=== PATIENT | female | born 1995 | race Two or more races ===

== ENCOUNTER 2024-12-31 13:28 | Emergency (ER) | payer MEDICAID ==
[~2024-12-31] VITALS: Ht 160 cm; Wt 55.8 kg
[~2024-12-31 13:28] MED LIST: PRENCAP OR
--- NOTE | 2024-12-31 14:04 | ED.PDOC ---
CEMENT PATCHER HPI Comments A 29 YEAR OLD FEMALE PRESENTS TO THE ED WITH COMPLAINT OF ABNORMAL VAGINAL BLEEDING X TODAY WITH SUPRAPUBIC CRAMPING. PT STATES SHE IS EXPERIENCING PINK SPOTTING. LMP IN 08/2024 BUT PT BELIEVES SHE MAY ONLY BE 3-4 WEEKS . URINE HOME TEST POSITIVE ONE WEEK AGO. 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 PATIENT DENIES FEVER, CHILLS, SHORTNESS OF BREATH, CHEST PAIN, NAUSEA, VOMITING, HEADACHE, URINARY SYMPTOMS, OR OTHER COMPLAINTS. NO OTHER SYMPTOMS OR MODIFYING FACTORS AT THIS TIME. PATIENT IS ALERT, ORIENTED X 4, AND HAS STEADY GAIT. Chief Complaint: Pelvic Pain Time Seen by MD: 13:50 Reviewed Notes: Nurses Notes, Medications, Allergies Allergies: Coded Allergies: NO KNOWN ALLERGIES (Unverified , 06/27/12) Home Meds Reported Medications Mv & Min W/Fe Fumarat ( 1) Cap, 1 OR, CAP 12/25/14 Information Source: Patient Mode of Arrival: Ambulatory Timing: Hours Severity: Mild Vaginal Discharge: None Vaginal Lesions: None Bleeding Quality: Bright Red (PINK) Vaginal Mass: None Onset Of Mass/Bleeding: Spontaneous Sexual Activity: Last Consensual [place]: Unknown Control: None History of: Current Blood Type: Unknown Associated Signs and Symptoms: Cramping, Other (VAGINAL SPOTTING ) Past Medical History PAST MEDICAL HISTORY: Denies Surgical History: Denies all surgeries UNIT COORDINATOR History: No Pertinent UNIT COORDINATOR History Family History Family History: Unknown Social History Smoker: Non-Smoker Alcohol: Denies ETOH Use Drugs: Denies Drug Use Lives In: Home Constitutional: denies: chills, diaphoresis, fatigue, fever, malaise, sweats, weakness, others EENTM: denies: blurred vision, double vision, ear bleeding, ear discharge, ear drainage, ear pain, ear ringing, eye pain, eye redness, hearing loss, mouth pain, mouth swelling, nasal discharge, nose bleeding, nose congestion, nose pain, photophobia, tearing, throat pain, throat swelling, voice changes, others Respiratory: denies: cough, hemoptysis, orthopnea, SOB at rest, shortness of breath, SOB with excertion, stridor, wheezing, others Cardiovascular: denies: chest pain, dizzy spells, diaphoresis, Dyspnea on exertion, edema, irregular heart beat, left arm pain, lightheadedness, palpitations, PND, syncope, others Gastrointestinal: denies: abdomen distended, abdominal pain, blood streaked bowels, constipated, diarrhea, dysphagia, difficulty swallowing, hematemesis, melena, nausea, poor appetite, poor fluid intake, rectal bleeding, rectal pain, vomiting, others Genitourinary: reports: abnormal vagina bleeding, pain, ; denies: burning, dyspareunia, dysuria, flank pain, frequency, hematuria, incontinence, vagina discharge, urgency, others Neurological: denies: dizziness, fainting, headache, left sided numbness, left sided weakness, numbness, paresthesia, pre-existing deficit, right sided numbness, right sided weakness, seizure, speech problems, tingling, tremors, weakness, others Musculoskeletal: denies: back pain, gout, joint pain, joint swelling, muscle pain, muscle stiffness, neck pain, others Integumetry: denies: bruises, change in color, change in hair/nails, dryness, laceration, lesions, lumps, rash, wounds, others Allergic/Immunocompromised: denies: Difficulty Healing, Frequent Infections, Hives, Itching, others Hematologic/Lymphatic: denies: anemia, blood clots, easy bleeding, easy bruising, swollen glands, others Endocrine: denies: excessive hunger, excessive sweating, excessive thirst, excessive urination, flushing, intolerance to cold, intolerance to heat, unexplained weight gain, unexplained weight loss, others Psychiatric: denies: anxiety, bipolar disorder, depression, hopeless, panic disorder, schizophrenia, sleepless, suicidal, others All Other Systems: Reviewed and Negative Physical Exam General Appearance: No Apparent Distress, Normal HEENT: Normal ENT Inspection, PERRL/EOMI, Pharynx Normal, TMs Normal Neck: Full Range of Motion, Non-Tender, Normal, Normal Inspection Respiratory: Chest Non-Tender, Lungs Clear, No Accessory Muscle Use, No Respiratory Distress, Normal Breath Sounds Cardiovascular: No Edema, No JVD, No Murmur, No Gallop, Normal Peripheral Pulses, Regular Rate/Rhythm Breast Exam: Deferred Gastrointestinal: No Organomegaly, Non Tender, No Pulsatile Mass, Normal Bowel Sounds, Soft Genitalia: Deferred Pelvic: Normal External Exam, Tender Uterus, Other (VAGINAL SPOTTING, NO VAGINAL BLEEDING AND BLOOD CLOTS. ) Rectal: Deferred Extremities: No calf tenderness, Normal capillary refill, Normal inspection, Normal range of motion, Non-tender, No pedal edema Musculoskeletal : Apperance: Normal Neurologic: Alert, snipper II-XII nml as Tested, No Motor Deficits, Normal Affect, Normal Mood, No Sensory Deficits Cerebellar Function: Normal Reflexes: Normal Skin: Dry, Normal Color, Warm Peripheral Pulses: 2+ carotid (R), 2+ carotid (L) Lymphatic: No Adenopathy Was a procedure done? Was a procedure done?: No Differential Diagnosis (UNIT COORDINATOR) Vaginal Bleeding: - Threatened, Ectopic , UTI Mass / Lesion: N/A Vaginal Discharge: UTI, N/A X-Ray, Labs, Meds, VS Vital Signs Date Time Temp Pulse Resp B/P (MAP) Pulse Ox O2 Delivery O2 Flow Rate FiO2 12/31/24 13:52 110 18 97 Room Air 12/31/24 13:52 98.1 110 18 128/66 (86) 97 98.1 12/31/24 13:33 98.1 110 18 128/66 (86) 97 Lab Test 12/31/24 14:10 12/31/24 13:35 Range/Units White Blood Count 7.1 4.4-10.8 10^3/uL Red Blood Count 4.00 4.0-5.20 10^6/uL Hemoglobin 13.3 12.2-16.2 g/dL Hematocrit 38.8 36.0-46.0 % Mean Corpuscular Volume 97.2 80.0-100.0 fL Mean Corpuscular Hemoglobin 33.3 H 28.0-32.0 pg Mean Corpuscular Hemoglobin Concent 34.2 32.0-36.0 g/dL Red Cell Distribution Width 12.4 11.8-14.3 % Platelet Count 232 140-450 10^3/uL Mean Platelet Volume 8.7 6.9-10.8 fL Neutrophils (%) (Auto) 62.9 37.0-80.0 % Lymphocytes (%) (Auto) 27.7 10.0-50.0 % Monocytes (%) (Auto) 8.4 0.0-12.0 % Eosinophils (%) (Auto) 0.5 0.0-7.0 % Basophils (%) (Auto) 0.5 0.0-2.0 % Neutrophils # (Auto) 4.5 1.6-8.6 10 ^3/uL Lymphocytes # (Auto) 2.0 0.4-5.4 10 ^3/uL Monocytes # (Auto) 0.6 0-1.3 10 ^3/uL Eosinophils # (Auto) 0 0-0.8 10 ^3/uL Basophils # (Auto) 0 0-0.2 10 ^3/uL Nucleated Red Blood Cells 0.1 % Beta HCG, Quantitative 2160.7 H 1.5-4.2 mIU/mL Urine Color Yellow Yellow Urine Clarity Clear Clear Urine pH 6.0 5.0-9.0 Urine Specific [place] 1.020 1.001-1.035 Urine Protein Negative Negative Urine Ketones 1+ H Negative Urine Blood Negative Negative /uL Urine Nitrite Negative Negative Urine Bilirubin Negative Negative Urine Urobilinogen Normal Negative mg/dL Urine Leukocyte Esterase Negative Negative /uL Urine RBC 1 0 - 4 /hpf Urine Microscopic WBC 1 0-5 /HPF Urine Squamous Epithelial Cells Few <5 /hpf Urine Bacteria Few H None Seen /hpf Urine Hyaline Casts Few 0 - 2 /lpf Urine Mucus Few None Seen Urine Glucose Normal Normal mg/dL Urine Test Positive Negative [facility] [id number] [place] [address] Ph: [phone] DIAGNOSTIC IMAGING Diagnostic Imaging Report : [id number] Signed PATIENT: FIGUEROA CROFT ACCT: [id number] UNIT: [id number] : 1995 LOC: ER ROOM / BED: / AGE / SEX: 29 / F ADM STATUS: REG ER SERVICE [id number] ORDERING PHYSICIAN: EDWIN SALCIDO PROCEDURE(s): OB4US - OB ULTRASOUND COMP LESS 14WKS REASON: VAGINAL SPOTTING AND PELVIC PAIN ORDER NUMBER(s): [id number], ACCESSION NUMBER(s): [id number] OB ULTRASOUND <14 WEEKS: HISTORY: VAGINAL SPOTTING AND PELVIC PAIN TECHNIQUE: Multiple real-time grayscale sonographic images of the pelvis with duplex Doppler color flow, spectral and M-mode analysis. TRANSDUCERS: Transabdominal and transvaginal COMPARISON: None FINDINGS: The uterus measures 9.0 x 6.0 x 4.2 cm. Endometrial thickness measures 6 mm. The cervix is unremarkable. Right ovary measures 2.9 x 1.9 x 1.8 cm with normal Doppler color flow. Left ovary measures 3.2 x 2.0 x 2.3 cm with normal Doppler color flow. No fluid in the pelvic cul-de-sac. IMPRESSION: 1. No intrauterine is seen at this time. Recommend follow-up ultrasound and serial beta HCG as clinically indicated. 2. Ovaries are unremarkable. No adnexal masses. ATED BY: MIR SOLOMON DO DICTATED DATE/TIME: 12/31/24 1506 SIGNED BY: MIR SOLOMON DO SIGNED DATE/TIME: 12/31/24 1506 CC: X-Ray, Labs, Meds, VS Comment COURSE: EXTERNAL MEDICAL RECORDS REVIEWED: [NONE] INDEPENDENT HISTORIANS: [NONE] SOCIAL DETERMINANTS OF HEALTH: [NONE] LABS ORDERED: CBC, BETA HCG QUANT, UA, URINE TEST REVIEWED AND INTERPRETED RESULTS: CBC, BETA HCG QUANT, UA, URINE TEST IMAGING ORDERED: TREATMENTS ORDERED: NONE PROCEDURES PERFORMED: NONE CRITICAL CARE TIME: NONE I HAVE DISCUSSED THE PATIENT WITH THE ATTENDING PHYSICIAN DR. GEE AND HE AGREES WITH THE PATIENT'S PLAN OF CARE AND DISPOSITION. BASED ON HISTORY OF PRESENT ILLNESS, AND PHYSICAL EXAM, PATIENT WILL BE DISCHARGED HOME. DISCUSSED PLAN FOR DISCHARGE HOME WITH RX. MEDICATION WARNINGS GIVEN. SHARED DECISION MAKING: DISCUSSED WITH PATIENT THAT THEIR WORKUP WAS NORMAL. PATIENT INSTRUCTED TO FOLLOW UP WITH PRIMARY CARE PROVIDER IN 1-2 DAYS FOR RE- EVALUATION OF SYMPTOMS. PATIENT VERBALIZES UNDERSTANDING TO RETURN TO ED FOR NEW OR WORSENING SYMPTOMS OR IF FOLLOW UP WITH PCP CANNOT BE OBTAINED. PATIENT FEELS COMFORTABLE GOING HOME AT THIS TIME. ALL QUESTIONS ADDRESSED AT TIME OF DISCHARGE Time of 1ST Reevaluation: 16:06 Reevaluation 1ST: Improved Patient Education/Counseling: Diagnosis, Treatment, Need For Follow Up Family Education/Counseling: Diagnosis, Treatment, Need For Follow Up, No Family Present Medical Screening: No EMC Exist At This Time Departure 1 Departure Time of Disposition: 16:10 Impression: Primary Impression: Vaginal spotting Additional Impression: Threatened in early Disposition: 01 HOME / SELF CARE / HOMELESS Condition: Stable Additional Instructions: FOLLOW-UP WITH CEMENT PATCHER AND ER IN 2 DAYS TO RECHECK BETA-HCG TEST. TAKE MEDICATIONS PRESCRIBED. RETURN TO ED FOR ANY NEW OR WORSENING SYMPTOMS. Discharged With: Self Critical Care Note Critical Care Time?: No Stability Stability form required: No Heart Score Heart Score: Heart Score Response (Comments) Value History N/A 0 EKG N/A 0 Age N/A 0 Risk Factors N/A 0 Troponin N/A 0 Total 0 I personally scribed for EDWIN SALCIDO ([email or web address]) on 12/31/24 at 14:04. Electronically submitted by Ruth Alonso ([employer]). I personally scribed for EDWIN SALCIDO ([email or web address]) on 12/31/24 at 15:12. Electronically submitted by Ruth Alonso ([email or web address]). I personally scribed for EDWIN SALCIDO ([email or web address]) on 12/31/24 at 16:01. Electronically submitted by Ruth Alonso ([email or web address]). EDWIN SALCIDO Dec 31, 2024 14:04
[2024-12-31 14:06] LABS: Urine Bacteria FEW /hpf (None Seen); Urine Blood Negative /uL (Negative); Urine Clarity Clear (Clear); Urine Color Yellow (Yellow); Urine Hyaline Cast FEW /lpf (0 - 2); Urine Mucus FEW (None Seen); Urine Protein, UAD Negative (Negative); Urine Squamous Epithelial Cell FEW /hpf (<5); Urine Urobilinogen Normal (Negative); Urine WBC 1 /HPF (0-5)
[2024-12-31 14:51] LABS: Basophils # (auto) 0 10 ^3/uL (0-0.2); Basophils % (auto) 0.5 % (0.0-2.0); Eosinophils # (auto) 0 10 ^3/uL (0-0.8); Eosinophils % (auto) 0.5 % (0.0-7.0); Hematocrit 38.8 % (36.0-46.0); Hemoglobin 13.3 g/dL (12.2-16.2); Lymphocytes % (auto) 27.7 % (10.0-50.0); Mean Corpuscular Hemoglobin 33.3 pg (28.0-32.0); Mean Corpuscular Hgb Conc. 34.2 g/dL (32.0-36.0); Mean Corpuscular Volume 97.2 fL (80.0-100.0); Monocytes # (auto) 0.6 10 ^3/uL (0-1.3); Monocytes % (auto) 8.4 % (0.0-12.0); Neutrophils # (auto) 4.5 10 ^3/uL (1.6-8.6); Neutrophils % (auto) 62.9 % (37.0-80.0); Nucleated Red Blood Cells % 0.1 %; Platelet Count (auto) 232 10^3/uL (140-450); Red Cell Distribution Width 12.4 % (11.8-14.3); White Blood Cell 7.1 10^3/uL (4.4-10.8)
--- NOTE | 2024-12-31 15:09 | DVH ---
OB ULTRASOUND <14 WEEKS: HISTORY: VAGINAL SPOTTING AND PELVIC PAIN TECHNIQUE: Multiple real-time grayscale sonographic images of the pelvis with duplex Doppler color f low, spectral and M-mode analysis. TRANSDUCERS: Transabdominal and transvaginal COMPARISON: None FINDINGS: The uterus measures 9.0 x 6.0 x 4.2 cm. Endometrial thickness measures 6 mm. The cervix is unremarkable. Right ovary measures 2.9 x 1.9 x 1.8 cm with normal Doppler color flow. Left ovary measures 3.2 x 2.0 x 2.3 cm with normal Doppler color flow. No fluid in the pelvic cul-de-sac. IMPRESSION: 1. No intrauterine is seen at this time. Recommend follow-up ultrasound and serial beta HCG as clinically indicated. 2. Ovaries are unremarkable. No adnexal masses.
[2024-12-31 16:11] VITALS: BP 122/78; PULSE 80; RESP 16; TEMP 97.8; O2SAT 98
== END 2024-12-31 16:12 | disposition home or self-care (01) ==
LOC: ER 13:28
DX: O20.0 Threatened abortion (principal); N93.9 Abnormal uterine and vaginal bleeding, unspecified; Z3A.01 Less than 8 weeks gestation of pregnancy
CPT/HCPCS: 36415; 76801; 76817; 81001; 81025; 84702; 85025

== ENCOUNTER 2025-01-13 17:10 | Emergency (ER) | payer MEDICAID ==
[~2025-01-13] VITALS: Ht 160 cm; Wt 55.6 kg
[2025-01-13 17:33] VITALS: BP 110/62; PULSE 72; RESP 18; O2SAT 98
[2025-01-13 18:36] LABS: Urine Bacteria FEW /hpf (None Seen); Urine Blood Negative /uL (Negative); Urine Clarity Clear (Clear); Urine Color Colorless (Yellow); Urine Protein, UAD Negative (Negative); Urine Specific Gravity 1.005 (1.001-1.035); Urine Squamous Epithelial Cell FEW /hpf (<5); Urine Urobilinogen Normal (Negative); Urine WBC 3 /HPF (0-5)
[2025-01-13] MEDS: KETOROLAC TROMETH 60MG/2ML VIAL IM ONE (18:54)
--- NOTE | 2025-01-13 21:41 | ED.PDOC ---
MANAGER QA HPI Comments This patient is a pleasant 29-year-old female who arrives to the ED today for evaluation of abdominal cramping and vaginal bleeding events with the occurred several days ago. Patient states that she is currently approximately 5-6 weeks and that one week ago had a vaginal bleeding event. Patient states she had an ultrasound at that point time that did not confirm a heart tone. Patient states that she had continued bleeding until yesterday when the bleeding subsided but the cramping increased. Patient denies any fever nausea or vomiting. Vital signs were stable on arrival. Chief Complaint: Pelvic Pain Time Seen by MD: 17:55 Reviewed Notes: Nurses Notes Allergies: Coded Allergies: NO KNOWN ALLERGIES (Unverified , 06/27/12) Home Meds Reported Medications Mv & Min W/Fe Fumarat ( 1) Cap, 1 OR, CAP 12/25/14 Mode of Arrival: Ambulatory Timing: Weeks Severity: Moderate Bleeding Quality: Bright Red Onset Of Mass/Bleeding: Spontaneous Past Medical History PAST MEDICAL HISTORY: Denies Surgical History: Denies all surgeries ENGINEERING DESIGN MANAGER History: No Pertinent ENGINEERING DESIGN MANAGER History Family History Family History: Unknown Social History Smoker: Non-Smoker Alcohol: Denies ETOH Use Drugs: Denies Drug Use Lives In: Home Constitutional: denies: chills, diaphoresis, fatigue, fever, malaise, sweats, weakness, others EENTM: denies: blurred vision, double vision, ear bleeding, ear discharge, ear drainage, ear pain, ear ringing, eye pain, eye redness, hearing loss, mouth pain, mouth swelling, nasal discharge, nose bleeding, nose congestion, nose pain, photophobia, tearing, throat pain, throat swelling, voice changes, others Respiratory: denies: cough, hemoptysis, orthopnea, SOB at rest, shortness of breath, SOB with excertion, stridor, wheezing, others Cardiovascular: denies: chest pain, dizzy spells, diaphoresis, Dyspnea on ex ertion, edema, irregular heart beat, left arm pain, lightheadedness, palpitations, PND, syncope, others Gastrointestinal: reports: abdominal pain; denies: abdomen distended, blood streaked bowels, constipated, diarrhea, dysphagia, difficulty swallowing, hematemesis, melena, nausea, poor appetite, poor fluid intake, rectal bleeding, rectal pain, vomiting, others Genitourinary: reports: abnormal vagina bleeding; denies: burning, dyspareunia, dysuria, flank pain, frequency, hematuria, incontinence, pain, , vagina discharge, urgency, others Neurological: denies: dizziness, fainting, headache, left sided numbness, left sided weakness, numbness, paresthesia, pre-existing deficit, right sided numbness, right sided weakness, seizure, speech problems, tingling, tremors, weakness, others Musculoskeletal: denies: back pain, gout, joint pain, joint swelling, muscle pain, muscle stiffness, neck pain, others Integumetry: denies: bruises, change in color, change in hair/nails, dryness, laceration, lesions, lumps, rash, wounds, others Allergic/Immunocompromised: denies: Difficulty Healing, Frequent Infections, Hives, Itching, others Hematologic/Lymphatic: denies: anemia, blood clots, easy bleeding, easy bruising, swollen glands, others Endocrine: denies: excessive hunger, excessive sweating, excessive thirst, excessive urination, flushing, intolerance to cold, intolerance to heat, unexplained weight gain, unexplained weight loss, others Psychiatric: denies: anxiety, bipolar disorder, depression, hopeless, panic disorder, schizophrenia, sleepless, suicidal, others Physical Exam General Appearance: Moderate Distress (Distress due to cramping concerns and anxiety related to possible miscarriage.), Normal HEENT: Normal ENT Inspection, Pharynx Normal, TMs Normal Neck: Full Range of Motion, Non-Tender, Normal, Normal Inspection Respiratory: Chest Non-Tender, Lungs Clear, No Accessory Muscle Use, No Respiratory Distress, Normal Breath Sounds Cardiovascular: No Edema, No JVD, No Murmur, No Gallop, Normal Peripheral Pulses, Regular Rate/Rhythm Breast Exam: Deferred Gastrointestinal: Other ( Diffuse bilateral lower abdominal /pelvic tenderness to palpation. The no pulsatile masses appreciated. No signs of trauma.) Genitalia: Deferred Pelvic: Deferred Rectal: Deferred Extremities: No calf tenderness, Normal capillary refill, Normal inspection, Normal range of motion, Non-tender, No pedal edema Neurologic: Alert, No Motor Deficits, Normal Affect, Normal Mood, No Sensory Deficits Cerebellar Function: Normal Reflexes: Normal Skin: Dry, Normal Color, Warm Lymphatic: No Adenopathy Was a procedure done? Was a procedure done?: No Differential Diagnosis (ENGINEERING DESIGN MANAGER) Vaginal Bleeding: - Complete, - Incomplete, - Inevitable, - Missed, - Threatened, Menometrorrhagia, Other ( Dysfunctional vaginal bleed during 1st trimester) X-Ray, Labs, Meds, VS Vital Signs Date Time Temp Pulse Resp B/P (MAP) Pulse Ox O2 Delivery O2 Flow Rate FiO2 01/13/25 17:33 98.5 72 18 110/62 (78) 98 Lab Test 01/13/25 18:38 01/13/25 17:31 Range/Units Beta HCG, Quantitative 52548.8 H 1.5-4.2 mIU/mL Urine Color Colorless Yellow Urine Clarity Clear Clear Urine pH 6.0 5.0-9.0 Urine Specific [place] 1.005 1.001-1.035 Urine Protein Negative Negative Urine Ketones Negative Negative Urine Blood Negative Negative /uL Urine Nitrite Negative Negative Urine Bilirubin Negative Negative Urine Urobilinogen Normal Negative mg/dL Urine Leukocyte Esterase Negative Negative /uL Urine RBC 1 0 - 4 /hpf Urine Microscopic WBC 3 0-5 /HPF Urine Squamous Epithelial Cells Few <5 /hpf Urine Bacteria Few H None Seen /hpf Urine Glucose Normal Normal mg/dL Current Medications Medications (Trade) Dose Ordered Sig/Donna Route Start Time Stop Time Status Last Admin Ketorolac Tromethamine (Toradol Injection) 30 mg ONCE ONCE IM 01/13/25 18:15 01/13/25 18:16 DC 01/13/25 18:54 X-Ray, Labs, Meds, VS Comment All studies performed the ED were evaluated by me personally.[place] [id number]. The number was significant enough to request a vaginal ultr asound to ascertain viability. Imaging attempted multiple times to locate the patient, but stated the patient appears to have eloped from the facility. Time of 1ST Reevaluation: 21:40 Reevaluation 1ST: Improved Consultation: PCP, geographic information system surveyor Patient Education/Counseling: Diagnosis, Treatment Family Education/Counseling: Diagnosis, Treatment Departure 1 Departure Time of Disposition: 21:40 Impression: Primary Impression: Threatened in early Disposition: 07 LEFT AWOL/ELOPED Condition: Fair Discharged With: Self Critical Care Note Critical Care Time?: No Stability Stability form required: No Heart Score Heart Score: Heart Score Response (Comments) Value History N/A 0 EKG N/A 0 Age N/A 0 Risk Factors N/A 0 Troponin N/A 0 Total 0 WADE CAMARILLO [facility] Jan 13, 2025 21:41
== END 2025-01-13 21:41 | disposition home or self-care (01) ==
LOC: ER 17:17
DX: O20.0 Threatened abortion (principal); Z3A.01 Less than 8 weeks gestation of pregnancy
CPT/HCPCS: 36415; 81001; 84702; 96372; 99283; J1885